=== PATIENT | female | born 1955 | race Caucasian/White ===

== ENCOUNTER 2019-12-31 09:26 | Outpatient (CLI) | payer MEDICARE, SELFPAY ==
--- NOTE | 2019-12-31 09:35 | XR_ITS ---
WS: [id number] SHOULDER RIGHT TECHNIQUE: 3 views of the right shoulder CLINICAL INFORMATION: SHOULDER PAIN, RIGHT COMPARISON: None. FINDINGS: Normal acromioclavicular joint. Normal glenohumeral joint. Acromion is normal in appearance. Normal g lenoid. No evidence of acute fracture dislocation. XR/XR shoulder RT min 2V* [id number] IMPRESSION: Unremarkable right shoulder.
== END 2019-12-31 09:27 | disposition home or self-care (01) ==
LOC: RADWPI 09:30
PROVIDERS: Family Provider Electrodiagnostic Medicine; PCP Electrodiagnostic Medicine; Visit Provider Electrodiagnostic Medicine
DX: M25.511 Pain in right shoulder (principal)
CPT/HCPCS: 73030

== ENCOUNTER → 2021-01-15 11:03 | Outpatient (BNVA) | payer MEDICARE, SELFPAY | PROVIDERS: Family Provider Electrodiagnostic Medicine; PCP Electrodiagnostic Medicine; Visit Provider Nurse Practitioner Family | DX: Z20.822 Contact with and (suspected) exposure to COVID-19 (principal); J06.9 Acute upper respiratory infection, unspecified | CPT/HCPCS: 87635 ==

== ENCOUNTER 2022-08-19 08:17 | Oncology outpatient (recurring) (ONCR) | payer MEDICARE, MEDICAID, SELFPAY ==
--- NOTE | 2022-08-19 09:03 | N.ONRAD NP_ITS ---
Radiation Oncology Consultation Patient Name: Heather Breaux Date of : 1955 Date of Service: 08/19/2022 Attending Physician: Alberto Arita M.D. Heather Breaux was seen in consultation this afternoon at the request of [facility] for evaluation regarding adjuvant head and neck radiotherapy in the management of a recently diagnosed oral cavity carcinoma. The patient was evaluated at [facility]'s Department of Otolaryngology in [place], [place] in May of 2022 for a palatal mass. A physical examination identified a 3 cm x 2 cm midline palatal lesion. A previous biopsy described an atypical verrucous squamous proliferation. A CT scan of the neck ordered on May 25, 2022 described a 3 cm x 1.8 cm 2.4 cm multilobe enhancing lesion. There was no definite cervical lymphadenopathy by size criteria. A thoracic CT scan identified a spiculated right lower-lobe pulmonary nodule measuring 1.2 cm x 0.9 cm, a soft tissue nodule measuring 6 mm within the distal trachea, and a conglomerate of precarinal lymph nodes measuring 2.9 cm. A bilateral infrastructure maxillectomy, septectomy, lateral nasopharyngeal and soft palatal resection with placement of prosthesis was performed by Juan Carlos Wills M.D. on July 07, 2022. 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 The maximum DOI was 7 mm. Carcinoma also invaded the bone. There was no lymphovascular or perineural invasion identified. A neck dissection was not performed and therefore no lymph nodes were harvested. The patient was referred for adjuvant head and neck radiotherapy. I discussed with Ms. Breaux The [place] [employer] on Cancer Staging for head and neck malignancies and specifically, the pathological stage CHICHO (T4aNx) corresponding to her disease and The National Comprehensive Cancer Network Guidelines for adjuvant radiotherapy in patients with newly resected tumors and adverse features (i.e. positive/close margins, extranodal extension, lymphovascular invasion/perineural, pN2/pN3, or pT3-pT4 tumors). I also reviewed the classic studies, - the EORTC 06505 and RTOG 9501 trials - that established this recommendation. The EORTC investigation demonstrated an overall survival advantage and improved locoregional control in the combined modality arm, while the RTOG study documented improved disease-free survival and locoregional control in a subgroup of patients with positive margins and extranodal extension. I will order a PET scan to complete staging. If there are no unexpected findings from PET imaging, I would endorse a 6 week course of radiation therapy. Prior to beginning treatment, a radiotherapy planning CT scan with contrast will be acquired to delineate the clinical target volumes. I reviewed the potential toxicities of head and neck radiotherapy. The patient has verbalized understanding and would like to proceed as advocated. The patient???s medical treatment plan was discussed with Juan Carlos Wills M.D. Signed by: Dr. Alberto Arita 08/19/2022 9:32:48 AM
== END 2022-08-23 23:59 | disposition home or self-care (01) ==
PROVIDERS: PCP Electrodiagnostic Medicine; Visit Provider Radiology Radiation Oncology
DX: C41.1 Malignant neoplasm of mandible (principal); R91.1 Solitary pulmonary nodule
CPT/HCPCS: 99205

== ENCOUNTER 2022-09-10 06:04 | Outpatient (CLI) | payer MEDICARE, MEDICAID, SELFPAY ==
--- NOTE | 2022-09-10 08:30 | PETR_ITS ---
PROCEDURE INFORMATION: Exam: PET/CT Skull Base to Mid-thigh Exam date and time: 09/10/2022 9:03 AM Age: 66 years old Clinical indication: Condition or disease; Primary cancer: 3 cm x 2 cm midline palatal lesion. A. Previous biopsy described an atypical verrucous squamous proliferation. Condition/disease: Pathological findings included a 3.5 cm. Invasive jhnz-ntuojng-ojoqtpiqrjqxzw keratinizing squamous cell carcinoma with. Verrucous features of the right inferior maxilla measuring 3.5 cm. Prior surgery; Surgery type: A bilateral infrastructure maxillectomy, septectomy, lateral nasopharyngeal and. Soft palatal resection with placement of prosthesis was performed by shakir Martinez On July 07, 2022. ; Additional info: Staging for oral cavity cancer post-maxillectomy (t4a), please leave a message if the patient does not answer. She LABS AND CLINICAL REPORTS: Glucose: 100 mg/dl Treatment strategy for malignancy (PET staging): Initial Staging (PI) TECHNIQUE: Imaging protocol: Following at least four-hour fasting and following the injection of F-18-FDG, low dose CT images were obtained. Then, PET images were obtained. Attenuation corrected images were constructed using the CT scan. Fused images of PET and CT were reviewed. The standardized uptake values (SUV) reported below are maximum values within a region of interest, expressed in gm/ml. Exam includes orbital meatal line to mid-thigh. Radiopharmaceutical: 12.23 mCi F-18 FDG (Fluorodeoxyglucose), IV. Time of imaging post radiopharmaceutical administration: 1 hour Injection site: Left antecubital vein COMPARISON: CT neck and chest w con 05/25/2022, chest x-ray 06/30/2022 and 11/25/2016 FINDINGS: Brain: Visualized brain has normal physiologic uptake. Paranasal sinuses/nasal cavity: No abnormal uptake. Postsurgical changes after resection of the nasal septum and inferior turbinates. There is mild mucosal thickening inferiorly in bilateral maxillary sinuses and in the sphenoid sinus with no air-fluid level. Mastoid air cells: No abnormal uptake. Persistent bilateral effusion. Pharynx: No abnormal uptake. Large nasal tumor involving the palate present on 05/25/2022 has been resected. There is expected appearance of palate prosthesis which is hypometabolic. Larynx: Bilateral symmetric increased uptake is suggestive of benign finding. Lungs, pleura and trachea: Stable in size 11 mm nodule in the right lower lobe with irregular spiculated margins and central calcification measures 1.2 SUV. There are no new nodules or masses. There is stable moderate centrilobular emphysema in the upper lobes. No pleural effusion. Heart: Normal physiologic uptake. There is no cardiomegaly. Mild coronary artery calcification is present. There is no pericardial effusion. Mediastinal space: No abnormal uptake. Stable sequela of exposure to granulomatous disease with calcified right mediastinal and right hilar lymph nodes. Liver: No abnormal uptake. Gallbladder and bile ducts: No abnormal uptake. Small calcified gallstones. Pancreas: No abnormal uptake. Spleen: No abnormal uptake. The spleen is normal in size with multiple calcified granulomas. Adrenal glands: No abnormal uptake. No nodules. Kidneys and ureters: Normal physiologic uptake. No hydronephrosis. Stomach and bowel: No abnormal uptake. Diverticulosis of the sigmoid colon. Intraperitoneal and retroperitoneal spaces: No abnormal uptake. No ascites. Bladder: Normal physiologic uptake. Reproductive: No abnormal uptake. The uterus is absent post surgically. Vasculature: No abnormal uptake. No aortic aneurysm. Diffuse atherosclerotic calcifications in the aorta, iliac and femoral arteries. Lymph nodes: No abnormal uptake. No lymphadenopathy in the head, neck, chest, abdomen, pelvis, and extremities. Bones/joints: No abnormal uptake in the visualized axial and appendicular skeleton. Soft tissues: No abnormal uptake in the visualized head, neck, chest, abdomen, pelvis, and extremities. PET/PET [facility] INITIAL [id number] IMPRESSION: 1. No abnormal radiotracer uptake in the resection bed to suggest local recurrence of palate tumor. No FDG avid lymphadenopathy in the neck, no evidence of distant FDG avid metastatic disease. 2. 11 mm lung nodule in the right lower lobe with irregular spiculated margins and central calcification is mildly FDG avid (1.2 SUV) stable in size since 05/25/2022. This finding is not appreciated on chest x-rays, long-term stability since 2017 cannot be confirmed. Further follow-up is recommended to exclude progression.
== END 2022-09-10 06:05 | disposition home or self-care (01) ==
LOC: RAD 09-12 06:04
PROVIDERS: PCP Electrodiagnostic Medicine; Visit Provider Radiology Radiation Oncology
DX: C06.89 Malignant neoplasm of overlapping sites of other parts of mouth (principal); R91.1 Solitary pulmonary nodule
CPT/HCPCS: 78815; A9552

== ENCOUNTER 2022-09-23 08:55 | Oncology outpatient (recurring) (ONCR) | payer MEDICARE, MEDICAID, SELFPAY ==
--- NOTE | 2022-09-23 09:23 | ONCRAD EPV_ITS ---
Radiation Oncology Follow-Up Note Patient Name: Heather Breaux Date of : 1955 Date of Service: 09/23/2022 Attending Physician: Alberto Arita M.D. Heather Breaux returned to my office this morning to review PET scan results. She was evaluated at [facility] [place] [facility]'s Department of Otolaryngology in [place], [place] in May of 2022 for a palatal mass. A physical examination identified a 3 cm x 2 cm midline palatal lesion. A previous biopsy described an atypical verrucous squamous proliferation. A CT scan of the neck ordered on May 25, 2022 described a 3 cm x 1.8 cm 2.4 cm multilobe enhancing lesion. There was no definite cervical lymphadenopathy by size criteria. A thoracic CT scan identified a spiculated right lower-lobe pulmonary nodule measuring 1.2 cm x 0.9 cm, a soft tissue nodule measuring 6 mm within the distal trachea, and a conglomerate of precarinal lymph nodes measuring 2.9 cm. A bilateral infrastructure maxillectomy, septectomy, lateral nasopharyngeal and soft palatal resection with placement of prosthesis was performed by Juan Carlos Wills M.D. on July 07, 2022. 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 The maximum DOI was 7 mm. Carcinoma also invaded the bone. There was no lymphovascular or perineural invasion identified. A neck dissection was not performed and therefore no lymph nodes were harvested. A PET scan completed on September 10, 2022 did not identify abnormal activity in the resection bed, cervical lymph nodes, nor distant disease. I discussed The National Comprehensive Cancer Network Guidelines for adjuvant radiotherapy in patients with newly resected tumors and adverse features (i.e. positive/close margins, extranodal extension, lymphovascular invasion/perineural, pN2/pN3, or pT3-pT4 tumors). I also reviewed the classic studies, - the EORTC 40128 and RTOG 9501 trials - that established this recommendation. The EORTC investigation demonstrated an overall survival advantage and improved locoregional control in the combined modality arm, while the RTOG study documented improved disease-free survival and locoregional control in a subgroup of patients with positive margins and extranodal extension. I would endorse a 6 week course of radiation therapy. Prior to beginning treatment, a radiotherapy planning CT scan with contrast will be acquired to delineate the clinical target volumes. I reviewed the potential toxicities of head and neck radiotherapy. Signed by: Alberto Arita 09/23/2022 9:23:14 AM
== END 2022-10-21 23:59 | disposition home or self-care (01) ==
PROVIDERS: PCP Electrodiagnostic Medicine; Visit Provider Radiology Radiation Oncology
DX: C31.0 Malignant neoplasm of maxillary sinus (principal); R91.1 Solitary pulmonary nodule; R59.0 Localized enlarged lymph nodes; F17.210 Nicotine dependence, cigarettes, uncomplicated; Z79.899 Other long term (current) drug therapy
CPT/HCPCS: 99215

== ENCOUNTER 2023-10-06 10:36 | Emergency (ER) | payer MEDICARE, MEDICAID, SELFPAY ==
[2023-10-06 10:55] VITALS: BP 132/70; PULSE 64; RESP 18; O2SAT 97
--- NOTE | 2023-10-06 11:02 | W.ED.GENADLT ---
HPI - General Adult General: Chief complaint: General Medical Stated complaint: G-tube problems Time Seen by Provider: 10/06/23 10:58 Source: patient Mode of arrival: ambulatory Limitations: no limitations History of Present Illness: 68-year-old female states she got her G-tube caught yesterday and it pulled out. She had taped her abdomen pulled the tape off it is displaced. She has no other complaints at this time. Denies any pain or bleeding Associated symptoms: Deny chest pain, dyspnea, nausea or vomiting Review of Systems Const: Denies: fever(s), chills, body aches or change in appetite ENMT: Denies: throat pain or dental pain Card: Denies: chest pain Resp: Denies: dyspnea GI: Denies: abdominal pain, nausea, vomiting or diarrhea Musc: Denies: neck pain or back pain PFSH ED PFSH: Social History Smoking and tobacco/nicotine status: current some day tobacco/nicotine user Alcohol intake: current Substance/Drug Use: never Physical Exam Const: COMMON NORMALS: no acute distress, patient oriented x3 and healthy appearing HENMT: COMMON NORMALS: normocephalic and atraumatic HEAD & SCALP: normocephalic and atraumatic Eye: COMMON NORMALS: conjunctivae normal CONJUNCTIVA: Yes conjunctivae normal Neck/C-Spine: COMMON NORMALS: full ROM and supple Chest: COMMONS NORMALS: normal inspection of the chest Resp: COMMON NORMALS: normal respiratory effort GI: OTHER: G-tube has been dislodged Extremity: COMMON NORMALS: normal to inspection and full ROM Neuro: COMMON NORMALS: patient oriented x3, moves all extremities and no focal motor deficits Psych: COMMON NORMALS: mental status grossly normal, Normal thought process present and cooperative THOUGHT PROCESS: Normal thought process present Skin: COMMON NORMALS: no rashes or lesions noted and no wounds GENERAL SKIN EXAM: no rashes or lesions noted Course Vital Signs: Vital signs: Vital Signs Pulse Rate 64 10/06/23 10:55 Respiratory Rate 18 10/06/23 10:55 Blood Pressure 132/70 10/06/23 10:55 Pulse Oximetry 97 10/06/23 10:55 Oxygen Delivery Me thod Room Air 10/06/23 10:55 MDM - General Adult Medical Decision Making Patient presents here with her G-tube dislodged it has been dislodged since yesterday I did attempt to place a new 1 but that tract is closed. She does not want any further attempts at this time states it was placed a year ago due to malnourishment but states she has been eating on her own and does not use it currently. I will have her follow-up with her PCP at this time she is return if worsening she understands agrees to plan. Medical Records I reviewed the patient's medical records. No radiology studies performed this visit Discharge Plan Discharge Patient Disposition: Home Clinical Impression: Gastrojejunostomy tube dislodgement Condition: Stable Prescriptions: No Action atorvastatin 10 mg tablet 10 mg PO DAILY Zyrtec 10 mg capsule 10 mg PO DAILY Qty: 30 0RF Discharge Orders: Discharge ED (Routine); Ordered 10/06/23 Ordered By: Irvin Zepeda Referrals: Jeffy De Leon DO [Primary Care Provider] - 1-3 days Discharge Diet: Advance as tolerated Discharge Activity: Resume usual activity Patient Instructions: GI Tube Care Coding Level of Care Code ED Backshoe Person for Roman Avila
== END 2023-10-06 12:23 | disposition home or self-care (01) ==
PROVIDERS: Emergency Provider Emergency Medicine; PCP Electrodiagnostic Medicine
DX: K94.29 Other complications of gastrostomy (principal); Z72.0 Tobacco use
CPT/HCPCS: 99282

== ENCOUNTER 2025-01-21 09:42 | Outpatient (CLI) | payer MEDICARE, MEDICAID, SELFPAY ==
--- NOTE | 2025-01-21 09:46 | MM_ITS ---
WS: [id number] BILATERAL 3D TOMOSYNTHESIS DIGITAL SCREENING MAMMOGRAPHY WITH CAD CLINICAL INFORMATION: SCREENING HISTORY: Screening mammogram. No current complaints. COMPARISON: 2013 TECHNIQUE: Bilateral CC and MLO views. FINDINGS: Scattered fibroglandular densities bilaterally. No suspicious focal mass, asymmetry, calcifications, or architectural distortion. No evidence of malignancy. Lucent centered calcification RIGHT breast MM/MM scr BI tomosynthesis [id number] IMPRESSION: DENSITY: There are scattered areas of fibroglandular density. BI-RADS: 2 - Benign. FOLLOW UP: 1 Year Follow-up Recommend return to annual screening mammography.
== END 2025-01-21 09:43 | disposition home or self-care (01) ==
LOC: RAD 09:42
PROVIDERS: PCP Electrodiagnostic Medicine; Visit Provider Electrodiagnostic Medicine
DX: Z12.31 Encounter for screening mammogram for malignant neoplasm of breast (principal); R92.323 Mammographic fibroglandular density, bilateral breasts; R92.1 Mammographic calcification found on diagnostic imaging of breast
CPT/HCPCS: 77063; 77067